=== PATIENT | female | born 1990 | race African-American/Black ===

== ENCOUNTER 2018-11-18 17:18 | Emergency (ER) | payer OTHER ==
--- NOTE | 2018-11-18 17:59 | ER ---
Nurse's Notes [facility] Name: Corey Nunez Age: 28 yrs Sex: Female : 1990 Arrival Date: 11/18/2018 Time: 17:21 Bed 11 Private MD: None, None Diagnosis: acute dental pain Presentation: 11/18 17:23 Presenting complaint: Patient states: Left sided dental pain, has taken ibuprofen at la1 home this morning at 0600. Transition of care: patient was not received from another setting of care. Onset of symptoms was November 18, 2018. Risk Assessment: Do you want to hurt yourself or someone else? Patient reports no desire to harm self or others. Initial Sepsis Screen: Does the patient meet any 2 criteria? No. Patient's initial sepsis screen is negative. Does the patient have a suspected source of infection? No. Patient's initial sepsis screen is negative. Care prior to arrival: None. 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 - Social history:: Smoking status: unknown. - Ebola Screening: : No symptoms or risks identified at this time. Screenin:25 Abuse screen: Denies threats or abuse. Nutritional screening: No deficits noted. la1 Tuberculosis screening: No symptoms or risk factors identified. Fall Risk None identified. Assessment: 17:25 General: Appears in no apparent distress. Behavior is calm, cooperative. Pain: la1 Complains of pain in left upper and lower dental pain. Neuro: Level of Consciousness is awake, alert, obeys commands, Oriented to person, place, time, situation. Cardiovascular: Capillary refill < 3 seconds Patient's skin is warm and dry. Respiratory: Airway is patent Respiratory effort is even, unlabored, Respiratory pattern is regular, symmetrical. EENT: No signs and/or symptoms were reported regarding the EENT system. Poor dentition noted. 18:05 Reassessment: Patient appears in no apparent distress at this time. Patient and/or ss family updated on plan of care and expected duration. Pain level reassessed. Patient is alert, oriented x 3, equal unlabored respirations, skin warm/dry/pink. Patient states feeling better. Patient states symptoms have improved. Vital Signs: 17:24 BP 117 / 76; Pulse 84; Resp 16; Temp 99.1(TE); Pulse Ox 100% on R/A; Weight 68.04 kg; la1 Height 5 ft. 2 in. (157.48 cm); Pain 7/10; 17:24 Body Mass Index 27.44 (68.04 kg, 157.48 cm) la1 ED Course: 17:21 Patient arrived in ED. mr 17:21 None, None is Private Physician. mr 17:21 None, None is Private Physician. mr 17:24 Triage completed. la1 17:24 Arm band placed on left wrist. la1 17:25 Richy Kilgore RN is Primary Nurse. la1 17:26 Call light in reach. la1 17:26 No provider procedures requiring assistance completed. Patient did not have IV access la1 during this emergency room visit. 17:29 Cristhian Miller MD is Attending Physician. ps1 Administered Medications: 17:55 Drug: Lidocaine (1 %) 5 mg {Note: medication administered by Dr. Miller.} Route: ss Infiltration; 17:55 Drug: Bupivacaine (0.5 %) 4 ml {Note: administered by Dr. Miller.} Volume: 10 ml; ss Route: Infiltration; Outcome: 17:59 Discharge ordered by . ps1 18:06 Discharged to home ambulatory. ss 18:06 Condition: good 18:06 Discharge instructions given to patient, family, Instructed on discharge instructions, follow up and referral plans. medication usage, Demonstrated understanding of instructions, follow-up care, medications, Prescriptions given X 1. 18:06 Patient left the ED. Signatures: Ramona Velazquez Maryann King RN RN Richy Kilgore RN RN la1 Cristhian Miller MD MD ps1
--- NOTE | 2018-11-18 17:59 | EDPHYS ---
Physician Documentation [facility] Name: Corey Nunez Age: 28 yrs Sex: Female : 1990 Arrival Date: 11/18/2018 Time: 17:21 Bed 11 Private MD: None, None ED Physician Cristhian Miller HPI: 11/18 17:56 This 28 yrs old Black Female presents to ER via Ambulatory with complaints of Toothache.ps1 17:56 The patient presents with pain. The problem is located in the mouth. The problem is ps1 located in the upper left first molar and lower left second molar. Onset: The symptoms/episode began/occurred 1 day(s) ago. Duration: The symptoms are continuous. no fever. no medications other than motrin. 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 - Social history:: Smoking status: unknown. - Ebola Screening: : No symptoms or risks identified at this time. ROS: 17:56 Constitutional: Negative for fever, chills, and weight loss, Eyes: Negative for injury, ps1 pain, redness, and discharge, Cardiovascular: Negative for chest pain, palpitations, and edema, Respiratory: Negative for shortness of breath, cough, wheezing, and pleuritic chest pain, Abdomen/GI: Negative for abdominal pain, nausea, vomiting, diarrhea, and constipation, Skin: Negative for injury, rash, and discoloration, Neuro: Negative for headache, weakness, numbness, tingling, and seizure. 17:56 ENT: Positive for dental pain. Exam: 17:56 Constitutional: This is a well developed, well nourished patient who is awake, alert, ps1 and in no acute distress. Head/Face: Normocephalic, atraumatic. Eyes: Pupils equal round and reactive to light, extra-ocular motions intact. Lids and lashes normal. Conjunctiva and sclera are non-icteric and not injected. Cardiovascular: Regular rate and rhythm. No gallops, murmurs, or rubs. Normal PMI, no JVD. No pulse deficits. Respiratory: Lungs have equal breath sounds bilaterally, clear to auscultation and percussion. No rales, rhonchi or wheezes noted. No increased work of breathing, no retractions or nasal flaring. Skin: Warm, dry with normal turgor. Normal color with no rashes, no lesions, and no evidence of cellulitis. MS/ Extremity: Pulses equal, no cyanosis. Neurovascular intact. Full, normal range of motion. 17:56 ENT: Mouth: is normal, Dental exam: dental caries, that is moderate, pain, that is moderate, specifically in the upper left second molar (#15) and lower left second molar (#18). Vital Signs: 17:24 BP 117 / 76; Pulse 84; Resp 16; Temp 99.1(TE); Pulse Ox 100% on R/A; Weight 68.04 kg; la1 Height 5 ft. 2 in. (157.48 cm); Pain 7/10; 17:24 Body Mass Index 27.44 (68.04 kg, 157.48 cm) la1 Procedures: 17:56 Nerve block: (regional) of left inferior alveolar nerve, lingual, long buccal and ps1 superior alveolar. MDM: 17:59 Patient medically screened. ps1 Administered Medications: 17:55 Drug: Lidocaine (1 %) 5 mg {Note: medication administered by Dr. Miller.} Route: ss Infiltration; 17:55 Drug: Bupivacaine (0.5 %) 4 ml {Note: administered by Dr. Miller.} Volume: 10 ml; ss Route: Infiltration; Disposition: 11/18/18 17:59 Discharged to Home. Impression: acute dental pain. - Condition is Stable. - Discharge Instructions: Dental Caries, Adult. - Prescriptions for Anaprox DS 550 mg Oral Tablet - take 1 tablet by ORAL route every 12 hours As needed; 20 tablet. - Medication Reconciliation Form, Thank You Letter, Antibiotic Education, Prescription Opioid Use form. - Follow up: Private Physician; When: 48 Hours; Reason: Continuance of care. Follow up: Emergency Department; When: As needed; Reason: Worsening of condition. - Problem is new. - Symptoms are unchanged. Signatures: Maryann King RN RN ss Richy Kilgore RN RN la1 Cristhian Miller MD MD ps1 Corrections: (The following items were deleted from the chart) 18:06 17:59 11/18/2018 17:59 Discharged to Home. Impression: acute dental pain. Condition is ss Stable. Forms are Medication Reconciliation Form, Thank You Letter, Antibiotic Education, Prescription Opioid Use. Follow up: Private Physician; When: 48 Hours; Reason: Continuance of care. Follow up: Emergency Department; When: As needed; Reason: Worsening of condition. Problem is new. Symptoms are unchanged. ps1
[2018-11-18 18:40] VITALS: BP 117/76; TEMP 99.1; O2SAT 100
== END 2018-11-18 18:06 | disposition home or self-care (01) ==
LOC: ER 17:18
DX: K08.89 Other specified disorders of teeth and supporting structures (principal)
CPT/HCPCS: 99283